=== PATIENT | female | born 2000 | race Caucasian/White ===

== ENCOUNTER 2024-10-10 20:53 | Emergency (ER) | payer OTHER, SELFPAY ==
--- NOTE | ~2024-10-10 | CT_ITS ---
CLINICAL HISTORY: RLQ pain CT abdomen and pelvis with contrast Comparison: None Findings: The lung bases are clear. The gallbladder and solid organs are within normal limits. No renal stones. No bowel obstruction, pneumoperitoneum, or pneumatosis. Mesenteric vessels patent. Uterus and ovaries unremarkable. Normal appendix. No ascites or hernia. No acute fracture. IMPRESSION: No acute findings. This document has been electronically signed by: Lambert Franklin MD on 10/11/2024 01:38:11
[2024-10-10 21:03] VITALS: BP 126/78; PULSE 124; RESP 20; TEMP 36.1; O2SAT 99; BMI 35.2
[2024-10-10 21:39] LABS: MANUAL DIFF FLAG NO
[2024-10-10 21:40] LABS: Basophils Percent Auto 0.2 % (0-2); Eosinophils Absolute Auto 0.1 X10*3/uL (0.0-0.4); Eosinophils Percent Auto 0.4 % (0-4); Hematocrit 45.3 % (37.0-47.0); Hemoglobin 15.9 g/dl (12.0-16.0); Imm Gran Abs Auto 0.03 X10*3/uL (0.00-0.03); Imm Gran Pct Auto 0.2 % (0.0-0.4); Lymphocytes Absolute Auto 0.8 X10*3/uL (1.2-4.9); Lymphocytes Percent Auto 6.6 % (20-40); Mean Corpuscular HGB Conc 35.1 g/dl (31.0-35.0); Mean Corpuscular Hemoglobin 28.8 pg (27.0-33.0); Mean Corpuscular Volume 82.1 fL (80.0-98.0); Mean Platelet Volume 9.1 fL (9.4-12.3); Monocytes Absolute Auto 0.4 X10*3/uL (0.1-1.2); Monocytes Percent Auto 3.6 % (2-11); Platelet Count 305 X10*3/uL (160-400); Red Blood Count 5.52 X10*6/uL (4.20-5.50); Red Cell Distribution Width 12.3 % (11.0-16.0); White Blood Count 12.3 X10*3/uL (4.8-10.8)
[2024-10-10 21:43] LABS: Appearance Urine Clear; Color Urine Dark Yellow; Glucose Urine UA Negative (Negative); Leukocyte Esterase Urine Negative (Negative); Nitrite Urine Negative (Negative); PH 5.5 (5.0-9.0); Specific Gravity - Urine >= 1.030 (1.005-1.025); UMIC TRIGGER UACC YES; Urine Blood Negative (Negative); Urine Ketones Trace mg/dL (Negative); Urine Protein 30 (1+) mg/dL (Neg-Trace)
[2024-10-10 21:48] LABS: Bacteria Urine None Seen (None Seen); Hyaline Casts Urine 0-2 /LPF (0-2); RBC Urine 0-2 /HPF (0-2); WBC Urine 0-5 /HPF (0-5)
[2024-10-10 22:01] LABS: Alanine Aminotransferase 24 U/L (0-31); Albumin Level 4.6 g/dL (3.5-5.0); Alkaline Phosphatase 68 U/L (39-117); Anion Gap 16 (12-20); Aspartate Amino Transferase 25 U/L (5-31); Bilirubin Total 0.7 mg/dL (0.0-1.0); Blood Urea Nitrogen 14 mg/dL (9-16); Calcium 9.4 mg/dL (8.4-10.2); Carbon Dioxide 17 mmol/L (22-29); Chloride 111 mmol/L (96-108); Creatinine Clr Calc Pharmacy 149.2; Estimated Glomerular Filt Rate > 60; Glucose Random 125 mg/dL (60-115); Lipase 47 U/L (8-78); Potassium 4.1 mmol/L (3.3-5.1); Sodium 140 mmol/L (135-145)
[2024-10-10 22:07] VITALS: BP 119/68; PULSE 99; RESP 16; O2SAT 97
[2024-10-10 22:16] LABS: Influenza A PCR NEGATIVE (Negative); Influenza B PCR NEGATIVE (Negative); Resp Syncy Virus RNA Qual PCR NEGATIVE (Negative); SARS COV2 PCR INHOUSE NEGATIVE (Negative)
--- NOTE | 2024-10-10 22:25 | PC.NURSE ---
Pt brought to main ED for treatment, assumed care of pt at this time. Self presents with reports of lower abd pain, N/V/D, headache, and cough x 4 days. Denies urinary symptoms. Denies sick contacts. Labs drawn in [facility], results received. Awaiting primary provider eval, aware of plan of care.
--- NOTE | 2024-10-10 23:56 | PC.NURSE ---
Pt tolerating PO, no further vomiting. Requesting to go home. Continues to await primary provider eval.
[2024-10-11 00:01] VITALS: BP 107/68; PULSE 110; RESP 16; TEMP 37.3; O2SAT 97
--- NOTE | 2024-10-11 00:01 | PC.NURSE ---
Provider to bedside for primary eval.
[2024-10-11 00:23] LABS: HCG Quantitative < 2 mIU/mL
[2024-10-11] MEDS: 0.9 % Sodium Chloride 1,000 ML 999 ML IV (00:34)
[2024-10-11] MEDS: ondansetron HCL 4 MG/2 ML VIAL IVPUSH (00:35)
--- NOTE | 2024-10-11 00:37 | PC.NURSE ---
Pt medicated per NOV, off floor to CT.
--- NOTE | 2024-10-11 00:41 | ED.GENADULT ---
HPI - General Adult General Chief complaint: General Medical Stated complaint: vomiting past 4 days/nothing stays down/fever Time Seen by Provider: 10/10/24 23:59 Source: patient, RN notes reviewed and old records reviewed Mode of arrival: ambulatory Limitations: no limitations History of Present Illness ED Provider: Parviz VELEZ narrative: 24-year-old female presents for evaluation of abdominal pain nausea vomiting and diarrhea. Her symptoms started 4 days ago. She reports subjective fevers at home. She endorses dizziness. She states she has been unable to keep anything down over the last 4 days Reports a previous umbilical hernia repair but no other abdominal surgeries Denies any urinary complaints pain Her last menstrual cycle was 6 days ago Related Data Home Medications ?Medication ?Instructions ?Recorded ?Confirmed norethindrone (contraceptive) 0.35 0.35 mg PO DAILY 08/19/21 08/19/21 mg tablet Previous Rx's ?Medication ?Instructions ?Recorded sulfamethoxazole 800 1 tab PO BID 7 days #14 tabs 08/19/21 mg-trimethoprim 160 mg tablet (Bactrim DS) ondansetron 4 mg disintegrating 4 mg PO Q8H PRN nausea and 10/11/24 tablet vomiting #20 tabs Allergies Allergy/AdvReac Type Severity Reaction Status Date / Time amoxicillin Allergy Severe hives and Verified 10/10/24 21:07 difficulty breathing Review of Systems Constitutional: Constitutional: Reports body ache(s), Reports chills, Reports fever(s) and Denies headache(s) Eyes: Eyes: Denies blurry vision, Denies floaters and Denies irritation ENT: Denies headache(s) Cardiovascular: Cardiovascular: Denies chest pain and Denies dyspnea Respiratory: Respiratory: Denies cough and Denies dyspnea Gastrointestinal: Gastrointestinal: Reports abdominal pain, Denies hematochezia, Reports diarrhea, Reports loose stools, Reports nausea and Reports vomiting Musculoskeletal: Musculoskeletal: Denies back pain Integumentary/Breasts: Skin/Breast: Denies rash Neurologic: Denies headache(s) [facility] Past Medical History Medical History (Updated 10/11/24 @ 00:44 by Aubrey Jj) No known health problems Social History Social History Patient Tobacco Use Status: Current someday Tobacco user Smoked in Last 30 Days: No Use of substances other than those prescribed or required for medical reasons: No Advance Directives: No Advance Directives Information Provided: No Do you have a plan to hurt others: No Plan Patient : No Physical Exam ED Vital Signs: Vital Signs - 24 hr 10/10/24 21:03 10/10/24 22:07 10/11/24 00:01 Temperature 97.0 F 99.2 F Pulse Rate 124 H 99 110 H Respiratory Rate 20 16 16 Blood Pressure 126/78 119/68 107/68 Pulse Oximetry 99 97 97 Oxygen Delivery Method Room Air Room Air Room Air BMI result Body Mass Index 35.2 Const General: healthy appearing, comfortable, no acute distress, alert and awake Nutritional Appearance: well nourished Orientation/consciousness: patient oriented x3 HENMT Head: Yes normocephalic and Yes atraumatic Eyes Eyelids: Yes eyelids normal Conjunctivae: conjunctivae normal Sclerae: sclerae normal Corneas: corneas normal Pupils: Equal, round and reactive pupils present EOM: EOMs intact bilaterally Neck Neck: Yes full ROM Resp Effort & Inspection: normal respiratory effort, able to speak in complete sentences and not labored GI Inspection: No distended Palpation (GI): Soft to palpation, not firm, Tenderness to palpation present (GI) in the RLQ; not in the LLQ, not in the LUQ and not in the RUQ, no guarding and not rigid Auscultation: normoactive bowel sounds Skin General skin exam: elasticity normal Neuro General: patient oriented x3 Cranial nerves: Yes Equal, round and reactive pupils present and Yes Bilaterally intact EOM present Cognition (Neuro): normal cognition Extrem Other: Moving all extremities well without any obvious deformities Course Reevaluation(s) Reevaluation #1: CT scan shows no evidence of acute appendicitis. The patient is comfortable, no further vomiting, plan for discharge Time: 01:46 Medications Administered Discontinued Medications Generic Name Dose Route Start Last Admin Trade Name Freq PRN Reason Stop Dose Admin Sodium Chloride 1,000 mls @ 999 mls/hr 10/11/24 00:15 10/11/24 01:37 Ns IV 10/11/24 01:15 Infused .Q1H1M DOMO Infusion Iohexol 85 ml 10/11/24 00:45 10/11/24 00:45 Iohexol 350 Mg/Ml 100 Ml Infus..Btl IV 10/11/24 00:46 85 ml ONCE ONE Administration Ondansetron HCl 4 mg 10/11/24 00:07 10/11/24 00:35 Ondansetron Hcl 4 Mg/2 Ml Vial IVPUSH 10/11/24 00:08 4 mg ONCE ONE Administration Medical Decision Making Medical Decision Making [facility] Narrative: 24-year-old female presents for evaluation abdominal pain, nausea and vomiting. Symptoms started 4 days ago. She was tachycardic to 110 in the ER with a temp 99.2?, [place] [id number]. She was hemodynamically stable. She does have a significant left shift. Her electrolytes are significant for a chloride of 111 which may be related to dehydration and vomiting, her carbon dioxide level is 17 which could be related to hyperventilating due to her pain. Otherwise no significant lab abnormalities, she was not . Plan for CT scan of the abdomen pelvis given the right lower quadrant tenderness with a white count and subjective fevers to rule out appendicitis. She does report a history of diverticulitis as well but I feel this is less likely given the location of her pain Differential Diagnosis Differential Diagnoses: The differential diagnosis associated with the presentation includes Acute appendicitis Diverticulitis Enteritis Colitis Abdominal pain Cholecystitis less likely Obstructive uropathy Lab Data [facility] Lab Attestation statement: I reviewed the patient's lab results. As above 10/10/24 21:33 10/10/24 21:33 Labs: Lab Results 10/10/24 Range/Units 21:33 WBC 12.3 H (4.8-10.8) X10*3/uL RBC 5.52 H (4.20-5.50) X10*6/uL Hgb 15.9 (12.0-16.0) g/dl Hct 45.3 (37.0-47.0) % MCV 82.1 (80.0-98.0) fL MCH 28.8 (27.0-33.0) pg MCHC 35.1 H (31.0-35.0) g/dl RDW 12.3 (11.0-16.0) % Plt Count 305 (160-400) X10*3/uL MPV 9.1 L (9.4-12.3) fL Immature Gran % (Auto) 0.2 (0.0-0.4) % Neut % (Auto) 89.0 H (45-73) % Lymph % (Auto) 6.6 L (20-40) % [place] % (Auto) 3.6 (2-11) % Eos % (Auto) 0.4 (0-4) % Baso % (Auto) 0.2 (0-2) % Lymph # (Auto) 0.8 L (1.2-4.9) X10*3/uL [place] # (Auto) 0.4 (0.1-1.2) X10*3/uL Eos # (Auto) 0.1 (0.0-0.4) X10*3/uL Baso # (Auto) 0.0 (0.0-0.2) X10*3/uL Abs Immat Gran (auto) 0.03 (0.00-0.03) X10*3/uL Absolute Neuts (auto) 11.0 H (2.0-8.3) x10*3/uL Absolute Nucleated RBC 0.000 (0.0-0.012) X10*3/uL Nucleated RBC % (auto) 0.0 (0.0-0.2) /100WBC Sodium 140 (135-145) mmol/L Potassium 4.1 (3.3-5.1) mmol/L Chloride 111 H (96-108) mmol/L Carbon Dioxide 17 L (22-29) mmol/L Anion Gap 16 (12-20) BUN 14 (9-16) mg/dL Creatinine 0.72 (0.5-1.4) mg/dL Estim Creat Clear Calc 149.2 Estimated GFR > 60 Random Glucose 125 H (60-115) mg/dL Calcium 9.4 (8.4-10.2) mg/dL Total Bilirubin 0.7 (0.0-1.0) mg/dL AST 25 (5-31) U/L ALT 24 (0-31) U/L Alkaline Phosphatase 68 (39-117) U/L Total Protein 8.0 (6.5-8.0) g/dL Albumin 4.6 (3.5-5.0) g/dL Lipase 47 (8-78) U/L Beta HCG, Quant < 2 mIU/mL Urine Color Dark Yellow Urine Appearance Clear Urine pH 5.5 (5.0-9.0) Ur Specific [place] >= 1.030 H (1.005-1.025) Urine Protein 30 (1+) H (Neg-Trace) mg/dL Urine Glucose (UA) Negative (Negative) mg/dL Urine Ketones Trace (Negative) mg/dL Urine Blood Negative (Negative) Urine Nitrite Negative (Negative) Ur Leukocyte Esterase Negative (Negative) Urine RBC 0-2 (0-2) /HPF Urine WBC 0-5 (0-5) /HPF Ur Squamous Epith Cells 6-10 (0-2) /HPF Urine Bacteria None Seen (None Seen) Hyaline Casts 0-2 (0-2) /LPF Influenza Type A (PCR) NEGATIVE (Negative) Influenza Type B (PCR) NEGATIVE (Negative) RSV RNA Qual (PCR) NEGATIVE (Negative) SARS-CoV-2 RNA (RT-PCR) NEGATIVE (Negative) Independent Interpretation I performed an independent interpretation of an: CT Scan (Agree with Radiology interpretation, no acute findings) Radiology Impression Discussion of test interpretation with radiology: I have reviewed the radiologist's reading. Radiologist Impression: Findings: The lung bases are clear. The gallbladder and solid organs are within normal limits. No renal stones. No bowel obstruction, pneumoperitoneum, or pneumatosis. Mesenteric vessels patent. Uterus and ovaries unremarkable. Normal appendix. No ascites or hernia. No acute fracture. IMPRESSION: No acute findings. This document has been electronically signed by: Lambert Franklin MD on 10/11/2024 01:38:11 Discharge Plan Discharge Clinical Impression: Abdominal pain Patient Disposition: Home, Self-Care Instructions: Abdominal Pain (ED) Additional Instructions: Your workup in the ER today was reassuring. This includes your CT scan, your appendix was within normal limits. Take Zofran as needed for nausea and vomiting, drink lots of fluids, small sips at a time Follow-up with your primary doctor, return for new or worsening symptoms Prescriptions: New ondansetron 4 mg tablet,disintegrating 4 mg PO Q8H PRN (Reason: nausea and vomiting) Qty: 20 0RF No Action norethindrone (contraceptive) 0.35 mg tablet 0.35 mg PO DAILY sulfamethoxazole-trimethoprim [Bactrim DS] 800-160 mg tablet 1 tab PO BID 7 Days Qty: 14 0RF Print Language: [place]
[2024-10-11] MEDS: iohexoL 350 MG/ML 100 ML INFUS..BTL 85 ML IV (00:45)
[2024-10-11 01:53] VITALS: BP 107/68; PULSE 110; RESP 16; TEMP 37.3; O2SAT 97
== END 2024-10-11 01:54 | disposition home or self-care (01) ==
PROVIDERS: Physician Assistant; Emergency Provider Emergency Medicine Emergency Medical Services
DX: R11.2 Nausea with vomiting, unspecified (principal); R10.2 Pelvic and perineal pain; R50.9 Fever, unspecified; R42 Dizziness and giddiness; Z03.818 Encounter for observation for suspected exposure to other biological agents ruled out; Z79.899 Other long term (current) drug therapy
CPT/HCPCS: 0241U; 74177; 80053; 81001; 83690; 84702; 85025; 96361; 96374; 99284; J2405; Q9967

== ENCOUNTER → 2024-10-11 00:05 | Outpatient (BNV) | payer OTHER, SELFPAY | PROVIDERS: Emergency Provider Emergency Medicine Emergency Medical Services; Visit Provider Radiology Diagnostic Radiology | DX: R10.31 Right lower quadrant pain (principal) | CPT/HCPCS: 74177 ==